=== PATIENT | male | born 1970 | race Caucasian/White ===

== ENCOUNTER 2021-06-17 11:53 | Emergency (ER) | payer BC, OTHER ==
[~2021-06-17] VITALS: Ht 172.7 cm; Wt 90.7 kg
[2021-06-17] MEDS ORDERED: PHENERGAN 25 MG25 M1 PO (12:35)
== END 2021-06-17 15:07 | disposition home or self-care (01) ==
LOC: ER1 11:53
DX: Z23 Encounter for immunization (principal); U07.1 COVID-19
CPT/HCPCS: 99283; M0243